=== PATIENT | female | born 1950 | race Caucasian/White ===

== ENCOUNTER 2016-11-04 23:35 | Emergency (ER) | payer MEDICARE, MEDICAID ==
[~2016-11-04] VITALS: Ht 160 cm; Wt 89.8 kg
[~2016-11-04 23:35] MED LIST: [UNRECOGNIZED DRUG - OTHER]
[2016-11-05] MEDS ORDERED: ONDANSETRON HCL 4MG/2ML VIAL IV STA (00:52)
[2016-11-05] MEDS ORDERED: MORPHINE SULFATE 4 MG/ML CPJ (NOT FOR IM USE) IV STA (00:52)
[2016-11-05] MEDS ORDERED: SODIUM CHLORIDE 0.9% 1,000 ML IV ONE (00:52)
[2016-11-05 01:28] LABS: BASOPHILS % 0.7 % (0.0-2.0); EOSINOPHILS % 3.4 % (0.0-5.0); HEMATOCRIT. 38.3 % (36.0-48.0); HEMOGLOBIN. 12.2 g/dL (12.0-16.0); LYMPHOCYTES % 26.5 % (20.0-50.0); MEAN CORPUSCULAR HEMOGLOBIN 25.6 pg (28.0-32.0); MEAN CORPUSCULAR HGB CONC 31.9 g/dL (31.0-37.0); MEAN CORPUSCULAR VOLUME 80.2 fL (81.0-99.0); MONOCYTES % 8.1 % (2.0-8.0); NEUTROPHILS % 61.3 % (40.0-76.0); PLATELET 180 x1000/uL (130-400); RED BLOOD CELL COUNT 4.78 mill/uL (4.2-5.4); RED CELL DISTRIBUTION WIDTH 17.3 % (11.6-14.6)
[2016-11-05 01:30] LABS: CHLORIDE 108 mEq/L (98-107); INDEX HEMOLYSI 1 (1-3); INDEX ICTERIC 1 (1-4); INDEX LIPEMIC 1 (1-3)
[2016-11-05 01:39] LABS: ALBUMIN 3.1 g/dL (3.4-5.0); ANION GAP 13; CALCIUM 8.5 mg/dL (8.5-10.1); CARBON DIOXIDE 25 mEq/L (21-32); eGFR > 60 mL/min (>60)
[2016-11-05 02:06] LABS: ALANINE AMINOTRANSFERASE 19 IU/L (13-61); TROPONIN I < 0.02 ng/mL (0.00-0.04)
[2016-11-05 02:20] LABS: UREA NITROGEN BLOOD 12 mg/dL (7-21)
[2016-11-05 02:22] LABS: GLUCOSE URINE NEGATIVE (NEGATIVE); KETONES URINE NEGATIVE (NEGATIVE); LEUKOCYTE ESTERASE URINE TRACE (NEGATIVE); NITRITE URINE NEGATIVE (NEGATIVE); OCCULT BLOOD URINE 1+ (NEGATIVE); PH URINE 5.5 (4.5-8.0); PROTEIN URINE NEGATIVE (NEGATIVE); SPECIFIC GRAVITY URINE 1.009 (1.005-1.030)
[2016-11-05 02:24] LABS: CLARITY URINE CLEAR (CLEAR); COLOR URINE PALE YELLOW (YELLOW)
[2016-11-05 04:46] LABS: SQUAMOUS EPITHELIAL CELL URINE FEW /lpf (RARE/1+)
[2016-11-05 04:47] LABS: BACTERIA URINE 2+; RBC URINE 0-2 /hpf (0-2); WBC URINE 0-2 /hpf (0-2)
[2016-11-05 05:25] VITALS: BP 128/77
== END 2016-11-05 06:06 | disposition home or self-care (01) ==
LOC: ER 23:36
DX: R51 Headache (principal); F41.9 Anxiety disorder, unspecified; I10 Essential (primary) hypertension; J45.909 Unspecified asthma, uncomplicated; E11.9 Type 2 diabetes mellitus without complications; M19.90 Unspecified osteoarthritis, unspecified site; R11.2 Nausea with vomiting, unspecified
CPT/HCPCS: 36415; 71010; 80053; 81001; 83605; 84484; 85025; 93005; 96361; 96374; 96375; 99285; J2270; J2405; J7030

== ENCOUNTER → 2017-01-05 | Outpatient (CLI) | payer MEDICARE, MEDICAID ==
[~2017-01-05] MED LIST changes: +DIATR MEGLU/DIATRIZOATE SOLN 120ML ONE; +IOHEXOL-300 100 ML BOTTLE ONE; +SODIUM CHLORIDE 0.9% 10ML VIAL ONE
== END | disposition home or self-care (01) ==
LOC: CT 09:31
PROVIDERS: ATTEND Internal Medicine Gastroenterology
DX: K44.9 Diaphragmatic hernia without obstruction or gangrene (principal); K82.8 Other specified diseases of gallbladder; K76.9 Liver disease, unspecified; Z98.84 Bariatric surgery status; R91.8 Other nonspecific abnormal finding of lung field; R18.8 Other ascites
CPT/HCPCS: 74177; A4216; Q9967; Q9963

== ENCOUNTER 2017-01-19 19:10 | Emergency (ER) | payer MEDICARE, MEDICAID ==
[~2017-01-19] VITALS: Ht 160 cm; Wt 97.0 kg
[~2017-01-19 19:10] MED LIST changes: -DIATR MEGLU/DIATRIZOATE SOLN 120ML ONE; -IOHEXOL-300 100 ML BOTTLE ONE; -SODIUM CHLORIDE 0.9% 10ML VIAL ONE
[2017-01-19] MEDS ORDERED: ONDANSETRON HCL 4MG/2ML VIAL IV STA (20:16)
[2017-01-19] MEDS ORDERED: MORPHINE SULFATE 4 MG/ML CPJ (NOT FOR IM USE) IV STA (20:16)
[2017-01-19] MEDS ORDERED: SODIUM CHLORIDE 0.9% 1,000 ML IV ONE (20:16)
[2017-01-19 21:07] LABS: CLARITY URINE CLEAR (CLEAR); COLOR URINE YELLOW (YELLOW); KETONES URINE NEGATIVE (NEGATIVE); LEUKOCYTE ESTERASE URINE 3+ (NEGATIVE); NITRITE URINE POSITIVE (NEGATIVE); OCCULT BLOOD URINE 1+ (NEGATIVE); PH URINE 5.5 (4.5-8.0); PROTEIN URINE NEGATIVE (NEGATIVE); SPECIFIC GRAVITY URINE 1.016 (1.005-1.030)
[2017-01-19 21:32] LABS: BASOPHILS % 0.4 % (0.0-2.0); HEMOGLOBIN. 11.4 g/dL (12.0-16.0); LYMPHOCYTES % 15.3 % (20.0-50.0); MEAN CORPUSCULAR HEMOGLOBIN 25.8 pg (28.0-32.0); MEAN CORPUSCULAR VOLUME 81.4 fL (81.0-99.0); MEAN PLATELET VOLUME 9.1 fl (7.4-10.4); MONOCYTES % 7.8 % (2.0-8.0); NEUTROPHILS % 74.5 % (40.0-76.0); PLATELET 213 x1000/uL (130-400); RED BLOOD CELL COUNT 4.42 mill/uL (4.2-5.4); RED CELL DISTRIBUTION WIDTH 17.1 % (11.6-14.6)
[2017-01-19 21:42] LABS: CARBON DIOXIDE 26 mEq/L (21-32); CHLORIDE 104 mEq/L (98-107)
[2017-01-19 21:44] LABS: INR 2.1; PROTHROMBIN TIME 21.5 sec
[2017-01-19] MEDS ORDERED: MORPHINE SULFATE 4 MG/ML CPJ (NOT FOR IM USE) IV ONE (21:45)
[2017-01-19] MEDS ORDERED: PANTOPRAZOLE SODIUM 40 MG/VIAL IV NR (22:45)
[2017-01-19] MEDS ORDERED: CEFTRIAXONE 2 G PREMIX 50 ML IV NR (22:45)
[2017-01-19] MEDS ORDERED: HYDROMORPHONE HCL/PF 2MG/ML CPJ IV ONE (23:00)
[2017-01-20 00:38] VITALS: BP 133/66
[2017-01-20] MEDS ORDERED: METO-539 PO (20:16)
[2017-01-20] MEDS ORDERED: FETZIMA PO (20:16)
[2017-01-20] MEDS ORDERED: OMEP40CA34 PO (20:16)
[2017-01-20] MEDS ORDERED: WARF3TAB27 PO (20:16)
[2017-01-20] MEDS ORDERED: TEMA15CA PO (20:16)
[2017-01-20] MEDS ORDERED: ALPR1TAB2 PO (20:16)
== END 2017-01-20 00:44 | disposition left against medical advice (07) ==
LOC: ER 21:38
DX: K92.1 Melena (principal); K56.60 Unspecified intestinal obstruction; J45.909 Unspecified asthma, uncomplicated; F41.9 Anxiety disorder, unspecified; E11.9 Type 2 diabetes mellitus without complications; F32.9 Major depressive disorder, single episode, unspecified; I11.9 Hypertensive heart disease without heart failure; Z98.84 Bariatric surgery status; Z90.49 Acquired absence of other specified parts of digestive tract; Z85.038 Personal history of other malignant neoplasm of large intestine; Z96.659 Presence of unspecified artificial knee joint
CPT/HCPCS: 36415; 74177; 80053; 81001; 83605; 83690; 85025; 85610; 86850; 86900; 86901; 87040; 93005; 96361; 96365; 96375; 96376; 99285; C9113; J0696; J1170; J2270; J2405; J7030

== ENCOUNTER 2017-01-20 12:25 | Inpatient (IN) | payer MEDICARE, MEDICAID ==
[~2017-01-20] VITALS: Ht 167.6 cm; Wt 98.9 kg
[~2017-01-20 12:25] MED LIST changes: +IOHEXOL-300 100 ML BOTTLE ONE; +SODIUM CHLORIDE 0.9% 10ML VIAL ONE
[2017-01-20] MEDS ORDERED: ONDANSETRON HCL 4MG/2ML VIAL IV STA (16:07)
[2017-01-20] MEDS ORDERED: SODIUM CHLORIDE 0.9% 1,000 ML IV ONE (16:07)
[2017-01-20] MEDS ORDERED: MORPHINE SULFATE 4 MG/ML CPJ (NOT FOR IM USE) IV STA (16:07)
[2017-01-20 16:35] LABS: BASOPHILS % 0.6 % (0.0-2.0); EOSINOPHILS % 2.8 % (0.0-5.0); HEMATOCRIT. 36.8 % (36.0-48.0); HEMOGLOBIN. 11.7 g/dL (12.0-16.0); LYMPHOCYTES % 24.4 % (20.0-50.0); MEAN CORPUSCULAR HEMOGLOBIN 25.8 pg (28.0-32.0); MEAN CORPUSCULAR VOLUME 81.3 fL (81.0-99.0); MEAN PLATELET VOLUME 8.8 fl (7.4-10.4); MONOCYTES % 9.3 % (2.0-8.0); NEUTROPHILS % 62.9 % (40.0-76.0); PLATELET 219 x1000/uL (130-400); RED BLOOD CELL COUNT 4.53 mill/uL (4.2-5.4); RED CELL DISTRIBUTION WIDTH 17.2 % (11.6-14.6)
[2017-01-20 16:51] LABS: CARBON DIOXIDE 28 mEq/L (21-32); CHLORIDE 106 mEq/L (98-107)
[2017-01-20] MEDS ORDERED: CLONIDINE 0.1MG TABLET PO PRN (18:30)
[2017-01-20] MEDS ORDERED: ACETAMINOPHEN 325MG TABLET PO PRN (18:30)
[2017-01-20] MEDS ORDERED: IPRATROPIUM/ALBUTEROL 0.5-3(2.5)MG/3ML NEB INH PRN (18:30)
[2017-01-20] MEDS ORDERED: MAGNESIUM/ALUMINUM HYDROXIDE/SIMETHICONE 30ML UDC PO PRN (18:30)
[2017-01-20] MEDS ORDERED: DIPHENHYDRAMINE 50MG/ML VIAL IV PRN (18:30)
[2017-01-20] MEDS ORDERED: ONDANSETRON HCL 4MG/2ML VIAL IV PRN (18:30)
[2017-01-20] MEDS: HYDROCODONE/ACETAMINOPHEN 5/325MG TABLET PO PRN (19:50)
[2017-01-20] MEDS ORDERED: TEMA15CA PO (20:16)
[2017-01-20] MEDS ORDERED: OMEP40CA34 PO (20:16)
[2017-01-20] MEDS ORDERED: ALPR1TAB2 PO (20:16)
[2017-01-20] MEDS ORDERED: FETZIMA PO (20:16)
[2017-01-20] MEDS ORDERED: WARF3TAB27 PO (20:16)
[2017-01-20] MEDS ORDERED: METO-539 PO (20:16)
[2017-01-20] MEDS: TEMAZEPAM 15MG CAPSULE PO PRN (20:54)
[2017-01-20] MEDS: ENOXAPARIN 100MG/ML SYR SUBCUT SCH (20:55)
[2017-01-21] MEDS: HYDROCODONE/ACETAMINOPHEN 5/325MG TABLET PO PRN ×3 (00:03→11:04)
[2017-01-21] MEDS: ALPRAZOLAM 0.5 MG TABLET PO PRN ×2 (03:08→20:55)
[2017-01-21] MEDS: OMEPRAZOLE 20MG CAPSULE EXTENDED RELEASE PO SCH (06:20)
[2017-01-21 07:09] LABS: BASOPHILS % 0.4 % (0.0-2.0); EOSINOPHILS % 3.3 % (0.0-5.0); HEMATOCRIT. 34.8 % (36.0-48.0); HEMOGLOBIN. 11.2 g/dL (12.0-16.0); LYMPHOCYTES % 24.9 % (20.0-50.0); MEAN CORPUSCULAR VOLUME 81.1 fL (81.0-99.0); MEAN PLATELET VOLUME 9.2 fl (7.4-10.4); MONOCYTES % 9.9 % (2.0-8.0); NEUTROPHILS % 61.5 % (40.0-76.0); PLATELET 200 x1000/uL (130-400); RED BLOOD CELL COUNT 4.29 mill/uL (4.2-5.4)
[2017-01-21 07:19] LABS: CARBON DIOXIDE 29 mEq/L (21-32); CHLORIDE 107 mEq/L (98-107); HDL CHOLESTEROL 41 mg/dL (40-59); LDL CHOLESTEROL 76 mg/dL (5-100)
[2017-01-21] MEDS: METOPROLOL TARTRATE 50MG TABLET PO SCH ×2 (09:02→20:56)
[2017-01-21] MEDS: ENOXAPARIN 100MG/ML SYR SUBCUT SCH ×2 (09:02→20:55)
[2017-01-21] MEDS ORDERED: HYDROCODONE/ACETAMINOPHEN 5/325MG TABLET PO PRN (14:30)
[2017-01-21] MEDS: MORPHINE SULFATE 4 MG/ML CPJ (NOT FOR IM USE) IV PRN ×3 (16:24→22:38)
[2017-01-21] MEDS: TEMAZEPAM 15MG CAPSULE PO PRN (22:40)
[2017-01-22] MEDS: MORPHINE SULFATE 4 MG/ML CPJ (NOT FOR IM USE) IV PRN ×6 (01:49→22:27)
[2017-01-22 06:54] LABS: CARBON DIOXIDE 29 mEq/L (21-32); CHLORIDE 105 mEq/L (98-107)
[2017-01-22 07:10] LABS: BASOPHILS % 0.5 % (0.0-2.0); EOSINOPHILS % 3.3 % (0.0-5.0); HEMATOCRIT. 35.4 % (36.0-48.0); HEMOGLOBIN. 11.3 g/dL (12.0-16.0); LYMPHOCYTES % 24.7 % (20.0-50.0); MEAN CORPUSCULAR HEMOGLOBIN 25.7 pg (28.0-32.0); MEAN CORPUSCULAR VOLUME 80.1 fL (81.0-99.0); MONOCYTES % 8.5 % (2.0-8.0); PLATELET 206 x1000/uL (130-400); RED BLOOD CELL COUNT 4.42 mill/uL (4.2-5.4); RED CELL DISTRIBUTION WIDTH 16.7 % (11.6-14.6)
[2017-01-22] MEDS: OMEPRAZOLE 20MG CAPSULE EXTENDED RELEASE PO SCH (08:52)
[2017-01-22] MEDS: ENOXAPARIN 100MG/ML SYR SUBCUT SCH ×2 (08:53→21:03)
[2017-01-22] MEDS: METOPROLOL TARTRATE 50MG TABLET PO SCH ×2 (08:53→21:01)
[2017-01-22] MEDS ORDERED: CEFTRIAXONE 1 G PREMIX 50 ML IV SCH (16:00)
[2017-01-22] MEDS ORDERED: WARFARIN SODIUM 3MG TABLET PO SCH (18:00)
[2017-01-22 19:43] LABS: INR 2.1; PROTHROMBIN TIME 22.5 sec
[2017-01-22] MEDS: ALPRAZOLAM 0.5 MG TABLET PO PRN (21:01)
[2017-01-23] MEDS ORDERED: WARFARIN SODIUM 3MG TABLET PO NR (03:30)
[2017-01-23] MEDS: MORPHINE SULFATE 4 MG/ML CPJ (NOT FOR IM USE) IV PRN ×2 (03:31→13:48)
[2017-01-23 06:09] LABS: BASOPHILS % 0.9 % (0.0-2.0); EOSINOPHILS % 2.8 % (0.0-5.0); HEMATOCRIT. 36.4 % (36.0-48.0); HEMOGLOBIN. 11.8 g/dL (12.0-16.0); LYMPHOCYTES % 28.8 % (20.0-50.0); MEAN CORPUSCULAR HEMOGLOBIN 25.8 pg (28.0-32.0); MEAN CORPUSCULAR VOLUME 79.7 fL (81.0-99.0); MEAN PLATELET VOLUME 9.1 fl (7.4-10.4); MONOCYTES % 9.4 % (2.0-8.0); NEUTROPHILS % 58.1 % (40.0-76.0); PLATELET 203 x1000/uL (130-400); RED BLOOD CELL COUNT 4.56 mill/uL (4.2-5.4); RED CELL DISTRIBUTION WIDTH 17.2 % (11.6-14.6)
[2017-01-23 06:28] LABS: CARBON DIOXIDE 29 mEq/L (21-32); CHLORIDE 104 mEq/L (98-107)
[2017-01-23] MEDS: OMEPRAZOLE 20MG CAPSULE EXTENDED RELEASE PO SCH (06:51)
[2017-01-23] MEDS: METOPROLOL TARTRATE 50MG TABLET PO SCH (08:56)
[2017-01-23] MEDS: ENOXAPARIN 100MG/ML SYR SUBCUT SCH (08:56)
[2017-01-23] MEDS ORDERED: FETZIMA 40 MG PO SCH (09:00)
[2017-01-23 14:15] VITALS: BP 122/75
[2017-01-23] MEDS ORDERED: WARFARIN SODIUM 3MG TABLET PO SCH (18:00)
== END 2017-01-23 15:15 | disposition home or self-care (01) | DRG 240 ==
LOC: ER 13:36 → 6EST 13:50 → ENRESERV 15:21 → CANBEDREQ 16:57 → 6EST 18:19
PROVIDERS: ADMIT Internal Medicine; ATTEND Internal Medicine
DX: C18.9 Malignant neoplasm of colon, unspecified (principal); E43 Unspecified severe protein-calorie malnutrition; C78.7 Secondary malignant neoplasm of liver and intrahepatic bile duct; K56.60 Unspecified intestinal obstruction; I48.91 Unspecified atrial fibrillation; E83.51 Hypocalcemia; F31.9 Bipolar disorder, unspecified; Z96.653 Presence of artificial knee joint, bilateral; F41.9 Anxiety disorder, unspecified; I10 Essential (primary) hypertension; I25.10 Atherosclerotic heart disease of native coronary artery without angina pectoris; Z79.01 Long term (current) use of anticoagulants; Z90.49 Acquired absence of other specified parts of digestive tract; Z98.84 Bariatric surgery status; Z79.899 Other long term (current) drug therapy; Z98.891 History of uterine scar from previous surgery
CPT/HCPCS: 36415; 74000; 80048; 80053; 80061; 85025; 85610; 87040; 87086; 93306; 93970; 96374; 96375; 99285; A4216; J0696; J1200; J1650; J2270; J2405; J7030; J7040; Q9967

== ENCOUNTER 2017-01-30 08:24 | Emergency (ER) | payer MEDICARE, MEDICAID ==
[~2017-01-30] VITALS: Ht 162.6 cm; Wt 100.0 kg
[~2017-01-30 08:24] MED LIST changes: +ALPR1TAB2 PO; +FETZIMA PO; -IOHEXOL-300 100 ML BOTTLE ONE; +METO50TA5 PO; +OMEP40CA34 PO; -SODIUM CHLORIDE 0.9% 10ML VIAL ONE; +TEMA15CA PO; +WARF3TAB27 PO; -[UNRECOGNIZED DRUG - OTHER]
[2017-01-30] MEDS ORDERED: SODIUM CHLORIDE 0.9% 1,000 ML IV ONE (10:29)
[2017-01-30] MEDS ORDERED: MORPHINE SULFATE 4 MG/ML CPJ (NOT FOR IM USE) IV STA (10:29)
[2017-01-30] MEDS ORDERED: ONDANSETRON HCL 4MG/2ML VIAL IV STA (10:29)
[2017-01-30] MEDS ORDERED: FAMOTIDINE 20MG/2ML VIAL IV ONE (10:30)
[2017-01-30 10:47] LABS: BASOPHILS % 0.3 % (0.0-2.0); EOSINOPHILS % 0.9 % (0.0-5.0); HEMATOCRIT. 38.5 % (36.0-48.0); HEMOGLOBIN. 12.5 g/dL (12.0-16.0); MEAN CORPUSCULAR HEMOGLOBIN 25.9 pg (28.0-32.0); MEAN CORPUSCULAR VOLUME 79.8 fL (81.0-99.0); MEAN PLATELET VOLUME 8.9 fl (7.4-10.4); MONOCYTES % 8.2 % (2.0-8.0); NEUTROPHILS % 66.6 % (40.0-76.0); PLATELET 240 x1000/uL (130-400); RED BLOOD CELL COUNT 4.83 mill/uL (4.2-5.4); RED CELL DISTRIBUTION WIDTH 17.7 % (11.6-14.6)
[2017-01-30 10:54] LABS: INR 1.7; PROTHROMBIN TIME 17.2 sec
[2017-01-30 10:55] LABS: CLARITY URINE CLEAR (CLEAR); COLOR URINE YELLOW (YELLOW); GLUCOSE URINE NEGATIVE (NEGATIVE); KETONES URINE NEGATIVE (NEGATIVE); LEUKOCYTE ESTERASE URINE 1+ (NEGATIVE); NITRITE URINE NEGATIVE (NEGATIVE); OCCULT BLOOD URINE NEGATIVE (NEGATIVE); PH URINE >=9.0 (4.5-8.0); PROTEIN URINE NEGATIVE (NEGATIVE); SPECIFIC GRAVITY URINE 1.011 (1.005-1.030)
[2017-01-30 10:56] LABS: CARBON DIOXIDE 30 mEq/L (21-32); CHLORIDE 98 mEq/L (98-107)
[2017-01-30 12:11] VITALS: BP 109/64
== END 2017-01-30 12:18 | disposition home or self-care (01) ==
LOC: ER 09:25
DX: K56.69 Other intestinal obstruction (principal); C18.9 Malignant neoplasm of colon, unspecified; Z51.5 Encounter for palliative care; F41.8 Other specified anxiety disorders; I11.9 Hypertensive heart disease without heart failure; Z90.49 Acquired absence of other specified parts of digestive tract; Z79.01 Long term (current) use of anticoagulants; Z98.84 Bariatric surgery status; Z96.659 Presence of unspecified artificial knee joint
CPT/HCPCS: 36415; 74000; 80053; 81001; 83690; 85025; 85610; 96361; 96374; 96375; 99285; J2270; J2405; J3490; J7030